=== PATIENT | female | born 1945 | race Caucasian/White ===

== ENCOUNTER 2020-01-02 19:34 | Inpatient (IN) | payer MEDICARE, SELFPAY ==
[2020-01-02] VITALS (21 sets, daily range): BP systolic 151–235; BP diastolic 81–115; PULSE 67–88; RESP 17–18; TEMP 36.6; O2SAT 93–98; BMI 29.0
--- NOTE | 2020-01-02 19:51 | XR_ITS ---
PROCEDURE: XR CHEST 2V CLINICAL HISTORY: altered mental COMPARISON: No exams were available for comparison FINDINGS: The cardiomediastinal silhouette and pulmonary vascularity are within normal limits. The lungs are clear without infiltrates, suspicious nodules, or pleural effusions. There is calcified granuloma in the left apex. No acute bony findings. IMPRESSION: No acute findings. Dictated b Fritz Santos MD 01/03/2020 07:49 Fritz Santos MD in [facility] 01/03/2020 07:49
--- NOTE | 2020-01-02 19:51 | CT_ITS ---
PROCEDURE: CT HEAD/BRAIN WO CON CLINICAL INDICATION: altered mental status Altered mental status, altered level of consciousness, confusion, disorientation COMPARISON: No exams were available for comparison TECHNIQUE: Axial images obtained. All CT scans at the facility use one or more dose reduction, viz: automated exposure control, ma/kV adjustment per patient size (including targeted exams where dose is matched to indication, i.e. head), or iterative reconstruction technique. FINDINGS: No midline shift, mass effect, intracranial hemorrhage, hydrocephalus, or extra-axial fluid collection is evident. There is generalized atrophy with hypoattenuation of the periventricular white matter consistent with microangiopathic changes. The calvarium has an unremarkable appearance. No mastoid effusion. No sinus air-fluid level. Hyperostosis frontalis interna IMPRESSION: No acute intracranial finding Dictated b Fritz Santos MD 01/03/2020 09:13 Fritz Santos MD in [facility] 01/03/2020 09:13
--- NOTE | 2020-01-02 19:51 | ECG_ITS ---
APPROVED REPORT Exam: Resting ECG HR:71 bpm ECG Measurements Heart Rate 71 AXES MI 180 P 46 QRSd 80 QRS -5 QT 436 T 54 QTc 473 <Conclusion> Normal sinus rhythm Minimal voltage criteria for LVH, may be normal variant ST abnormality, possible digitalis effect Abnormal ECG Electronically signed by : Peter Morgan, 01/03/2020 07:16:01
[2020-01-02 20:03] LABS: POC Glucose,Bedside 110 (70-110)
[2020-01-02 20:07] LABS: Basophils % 0.3 % (0.1-2.0); Eosinophils # 0.1 K/mm3 (0.0-0.4); Eosinophils % 1.6 % (0.1-12.0); Hematocrit 36.2 % (37.0-47.0); Hemoglobin 13.4 g/dL (12.2-16.2); Lymphocytes % 38.9 % (10-50); Mean Corpuscular Hemoglobin 33.8 pg (27.0-31.2); Mean Corpuscular Volume 91.4 fl (81-99); Mean Platelet Volume 6.8 fl (7.4-10.4); Monocytes # 0.4 K/mm3 (0.1-1.0); Monocytes % 5.7 % (1.7-9.3); Neutrophils # 4.1 K/mm3 (1.8-7.8); Neutrophils % 53.4 % (37.0-80.0); Platelet Count 325 K/mm3 (142-424); Red Blood Count 3.95 M/mm3 (4.20-5.40); Red Cell Distribution Width 13.2 % (11.5-17.5); White Blood Count 7.7 K/mm3 (4.8-10.8)
[2020-01-02 20:08] LABS: Chloride 95 mmol/L (98-107); Potassium 3.6 mmoL/L (3.5-5.1); Sodium 134 mmol/L (136-145)
[2020-01-02 20:10] LABS: Alanine Aminotransferase 21 U/L (12-78); Aspartate Amino Transferase 33 U/L (14-36); Bilirubin,Unconjugated 0.5 mg/dL (0.0-1.1); Blood Urea Nitrogen 12 mg/dl (7-17); Creatinine Clearance Estimated 64 mL/min (50-200); Estimated Glomerular Filt Rate 61 ml/min (>60); GFR (African American) 74 ML/MIN (>60)
[2020-01-02 20:11] LABS: Albumin Level 4.4 g/dl (3.5-5.0); Alkaline Phosphatase 103 U/L (38-126); Anion Gap 17.6 mEq/L (5-15); Bilirubin,Direct 0.1 mg/dl (0.0-0.4); Bilirubin,Indirect 0.5 mg/dL (0.0-0.9); Bilirubin,Total 0.6 mg/dl (0.2-1.3); Calcium 9.6 mg/dl (8.4-10.2); Carbon Dioxide 25 mmol/L (22.0-30.0); Glucose 110 mg/dl (74-100); Total Protein,Serum 8.4 g/dl (6.3-8.2)
--- NOTE | 2020-01-02 20:19 | HMH.EDGENADL ---
ED Disposition Clinical Impression: Hypertensive encephalopathy Disposition: Admitted As Inpatient Condition on Discharge: Serious - Critical Care Critical Care Time: Yes Attestation: On 01/02/20, the high probability of a clinically significant, sudden or life threatening deterioration of the following system(s) required my full and direct attention, intervention and personal management. The time I documented below is in addition to time spent performing reported procedures but includes the following listed in this critical care notation. Total Critical Care Time: 40 Vital system(s) involved:: Circulatory Failure, Central Nervous System My critical care processes included: Assessment & monitoring of V/S, Initial and Re-exams, Data Review/Interpretation, Coordinating Care, Medication Orders and management, Documentation Medical Decision Making - Medical Records Medical records reviewed: Yes: I reviewed the patient's medical records. - [place] Inquiry Pt receiving controlled substance: No Vital Signs: 01/02/20 19:47 01/02/20 20:23 01/02/20 20:48 Temperature 97.8 F Temperature Source Oral Pulse Rate [Right Brachial] 73 79 67 Respiratory Rate 18 18 18 Blood Pressure [Right Arm] 229/115 H 222/105 H 235/108 H Blood Pressure Mean [Right Arm] 153 144 150 Blood Pressure Source [Right Arm] Automatic Cuff Blood Pressure Position [Right Arm] Sitting 02 Sat by Pulse Oximetry 98 96 93 L Oxygen Delivery Method Room Air Room Air Room Air 01/02/20 21:03 01/02/20 21:23 01/02/20 21:35 Temperature Temperature Source Pulse Rate [Right Brachial] 76 79 81 Respiratory Rate 17 18 18 Blood Pressure [Right Arm] 218/96 H 183/88 H 193/88 H Blood Pressure Mean [Right Arm] 136 119 123 Blood Pressure Source [Right Arm] Automatic Cuff Blood Pressure Position [Right Arm] Sitting 02 Sat by Pulse Oximetry 98 97 94 L Oxygen Delivery Method Room Air Room Air 01/02/20 21:40 01/02/20 21:45 01/02/20 21:50 Temperature Temperature Source Pulse Rate [Right Brachial] 88 84 85 Respiratory Rate 18 18 18 Blood Pressure [Right Arm] 201/101 H 194/108 H 186/96 H Blood Pressure Mean [Right Arm] 134 136 126 Blood Pressure Source [Right Arm] Blood Pressure Position [Right Arm] 02 Sat by Pulse Oximetry 94 L 95 94 L Oxygen Delivery Method Room Air Room Air Room Air 01/02/20 21:55 01/02/20 22:00 01/02/20 22:05 Temperature Temperature Source Pulse Rate [Right Brachial] 80 85 81 Respiratory Rate 18 18 18 Blood Pressure [Right Arm] 183/85 H 176/86 H 155/84 H Blood Pressure Mean [Right Arm] 117 116 107 Blood Pressure Source [Right Arm] Blood Pressure Position [Right Arm] 02 Sat by Pulse Oximetry 95 94 L 94 L Oxygen Delivery Method Room Air Room Air Room Air 01/02/20 22:10 01/02/20 22:15 01/02/20 22:20 Temperature Temperature Source Pulse Rate [Right Brachial] 84 84 81 Respiratory Rate 18 18 18 Blood Pressure [Right Arm] 160/81 H 155/81 H 153/93 H Blood Pressure Mean [Right Arm] 107 105 113 Blood Pressure Source [Right Arm] Blood Pressure Position [Right Arm] 02 Sat by Pulse Oximetry 95 95 95 Oxygen Delivery Method Room Air Room Air Room Air 01/02/20 22:29 01/02/20 22:45 01/02/20 23:00 Temperature Temperature Source Pulse Rate [Right Brachial] 82 84 84 Respiratory Rate 18 18 18 Blood Pressure [Right Arm] 161/87 H 164/87 H 157/87 H Blood Pressure Mean [Right Arm] 111 112 110 Blood Pressure Source [Right Arm] Blood Pressure Position [Right Arm] 02 Sat by Pulse Oximetry 94 L 95 94 L Oxygen Delivery Method Room Air Room Air Room Air 01/02/20 23:15 01/02/20 23:30 01/02/20 23:45 Temperature Temperature Source Pulse Rate [Right Brachial] 87 85 85 Respiratory Rate 18 18 18 Blood Pressure [Right Arm] 163/90 H 169/91 H 151/88 H Blood Pressure Mean [Right Arm] 114 117 109 Blood Pressure Source [Right Arm] Blood Pressure Position [Right Arm] 02 Sat by Pulse Oxi
[2020-01-02 20:31] LABS: Troponin I < 0.01 ng/ml (0.00-0.034)
[2020-01-02 21:38] LABS: Adenovirus,PCR Not Detected (NotDetected); Bordetella Pertussis Not Detected (NotDetected); Chlamydophila Pneumoniae, PCR Not Detected (NotDetected); Coronavirus 19, PCR Not Detected (NotDetected); Coronavirus 229E Not Detected (NotDetected); Coronavirus NL63 Not Detected (NotDetected); Coronavirus OC43 Not Detected (NotDetected); Coronovirus HKU1,PCR Not Detected (NotDetected); Human Metapneumovirus Not Detected (NotDetected); Influenza A, PCR Not Detected (NotDetected); Influenza AH1, 2009 Not Detected (NotDetected); Influenza AH1, PCR Not Detected (NotDetected); Influenza AH3,PCR Not Detected (NotDetected); Influenza B, PCR Not Detected (NotDetected); Mycoplasma Pneumoniae, PCR Not Detected (NotDetected); Parainfluenza 1, PCR Not Detected (NotDetected); Parainfluenza 2, PCR Not Detected (NotDetected); Parainfluenza 3, PCR Not Detected (NotDetected); Parainfluenza 4, PCR Not Detected (NotDetected); Respiratory Syncytial Virus Not Detected (NotDetected); Rhinovirus/Enterovirus Not Detected (NotDetected)
[2020-01-02 21:45] LABS: Thyroid Stimulating Hormone 2.78 uIU/mL (0.465-4.68)
[2020-01-02 21:58] LABS: Microscopic, Urine URINE MICROSCOPIC (MICROSCOPIC)
--- NOTE | 2020-01-02 22:24 | PC.NURSE ---
decreased cardene drip to 2.5 due to hypertension decrease to 150+ systolic.
[2020-01-02 22:27] LABS: Appearance,Urine CLEAR (Clear); Bilirubin,Urine Negative (Negative); Blood, Urine TRACE-I (Negative); Color,Urine YELLOW (Yellow); Glucose,Urine (UA) Negative (Negative); Ketones,Urine Negative (Negative); Leukocyte Esterase,Urine Negative (Negative); Nitrate,Urine Negative (Negative); Protein,Urine Negative (Negative); Urobilinogen,Urine 0.2 EU/dl (0.2)
[2020-01-02 22:39] LABS: Amphetamine/Metha Screen,Urine Negative ng/ml (<1000)
[2020-01-02 22:40] LABS: Barbiturates Screen,Urine Negative ng/ml (<200); Benzodiazepines Screen,Urine Negative ng/ml (<200)
[2020-01-02 22:41] LABS: Cannabinoid Screen,Urine Negative ng/ml (<50); Cocaine Screen,Urine Negative ng/ml (<300)
[2020-01-02 22:42] LABS: Methadone Screen,Urine Negative ng/ml (<300)
[2020-01-02 22:43] LABS: Opiate Screen,Urine Negative ng/ml (<300); Phencyclidine Screen,Urine Negative ng/ml (<25)
[2020-01-02 22:55] LABS: Bacteria,Urine Trace /lpf; Squamous Epithelial Cell,Urine Occasional #/hpf (0-5); WBC,Urine Occasional #/hpf (0-3)
[2020-01-02 23:59] LABS: Troponin I < 0.01 ng/ml (0.00-0.034)
[2020-01-03] VITALS (39 sets, daily range): BP systolic 123–164; BP diastolic 62–98; PULSE 61–98; RESP 15–20; TEMP 36.7–37.1; O2SAT 90–98; BMI 28.6
--- NOTE | 2020-01-03 01:18 | PC.NURSE ---
pt leaving to the floor at this time via stretcher
--- NOTE | 2020-01-03 01:21 | PC.NURSE ---
patient up to floor via stretcher by RN.
--- NOTE | 2020-01-03 02:30 | PC.NURSE ---
Late Entry: @ 0100 - This RN obtained report from Yu Gill RN from the ER. This RN transferred orders and proceeded to ER to collect pt. @ 0105 - pt's daughter Anna at pt's bedside in ER, spoke with daughter and pt. Pt does not have a POA, and states her Sergio Farias or daughter would make health care decisions if pt is unable. Home# [phone]. Pt & daughter states pt is a full code. @ 0118 - transferred pt to the 2nd floor via stretcher, on room air
--- NOTE | 2020-01-03 02:54 | PC.NURSE ---
@ 0245 marizaene stopped d/t BP 123/76, goal setting for Cardene is to titrate to keep SBP < 150.
--- NOTE | 2020-01-03 03:11 | PC.NURSE ---
Pt sleeping quietly in bed with HOB @ 45 degrees. Pt has denied any N/V/D. Pt c/o headache upon arrival to the floor, medicated with Tylenol with good response on pain re-assessment. Pt has ambulated in the room and tolerated well with staff SBA. NSR noted on cardiac monitoring. Lungs CTA. Pt denies any SOA or dyspnea. ABD soft, non-tender with active BS and pt's last BM was 01/02/20. SaO2 has been 91-93% while asleep and >93% while awake. Pt denies any cough. Trace edema noted to Bilat ankles. Scattered bruising noted to BUE r/t prev. IV and venipuncture sites. CAll light wihtin reach, bed alarm in use, will continue to monitor.
--- NOTE | 2020-01-03 04:00 | PC.NURSE ---
Pt's SPB has maintained in goal of SBP < 150. Current BP 143/82. S/W Dr. Chen and instructed to continue on current gtt rate of 2.5mg/hr. No new orders for PO transitioning.
--- NOTE | 2020-01-03 07:17 | HMH.HP ---
*Admission Date: 01/02/20 *Chief complaint: Confusion *History of present illness: 74-year-old female with history of hypertension presented to the emergency department after a week long [place] with elevated blood pressures that on the day of admission had progressed to include confusion with aphasia. Patient reports last Wednesday her blood pressure was greater than 200 systolic. By yesterday afternoon the patient was having trouble finding my words . Family recognize this and brought her to the emergency department. Systolic blood pressure was around 220. Work-up was unrevealing and patient was diagnosed with hypertensive encephalopathy and admitted on a nicardipine drip. Blood pressures have responded well and have gradually improved. Patient this morning the patient reports she feels better. She denies headache. She feels like her speech is more appropriate and back to baseline [facility] History I have reviewed the patient's past medical history: Yes Medical History: Reports:: Hypertension Denies:: Cancer, Diabetes Mellitus Type 1, Diabetes Mellitus Type 2 *Have you ever received a pneumonia vaccine?: No *Have you received a flu vaccine this season?: No Other Medical History: Reports: Thyroid Disease Comment:: Hypothyroidism Other Surgeries: Yes: Dilation and Curettage - *Social History Last grade of school completed: 9th or 10th Smoking Status: Former smoker #Yrs smoked (if former smoker): 3 Smoking End Date: 05/31/1999 Alcohol Intake: former *Occupational Status:: retired Housing: house Household Members: spouse *Travel in the last 8 weeks: None Family Hx:: Heart Attack Review of Systems - Constitutional Denies body ache(s), Denies chills - Eyes Denies blind spots, Denies blurry vision, Denies change in vision - *Cardiovascular Denies chest pain, Denies chest pain at rest, Denies chest pain with activity, Denies excessive sweating, Denies shortness of breath, Denies shortness of breath with activity - *Respiratory Denies change in phlegm color, Denies chest congestion, Denies cough, Denies shortness of breath - *Gastrointestinal Denies abdominal pain, Denies belching - *Musculoskeletal Denies abnormal walking - *Neurologic Reports confusion, Reports unsteadiness, Reports headache(s), Denies abnormal speech, Denies numbness, Denies weakness Meds Home Medications Medication Instructions Recorded Confirmed Type LORazepam [Lorazepam] 1 tab PO DAILY 01/02/20 01/02/20 History Levothyroxine Sodium 88 mcg PO DAILY 01/02/20 01/03/20 History [Levothyroxine 88mcg (0.088mg) Tab] Lisinopril/Hydrochlorothiazide 1 tab PO DAILY 01/02/20 01/03/20 History [Lisinopril-Hctz 10-12.5 mg Tab] atenoloL [Atenolol 50mg Tab] 50 mg PO DAILY 01/02/20 01/03/20 History Allergies Allergy/AdvReac Type Severity Reaction Status Date / Time No Known Allergies Allergy Verified 01/02/20 19:51 Exam Vital signs and Labs for Last 24 Hours: Temp Pulse Resp BP Pulse Ox 98.0 F 67 19 124/67 95 01/03/20 05:15 01/03/20 06:00 01/03/20 06:00 01/03/20 06:00 01/03/20 06:00 Laboratory Results - last 24 hr 01/02/20 19:50: WBC 7.7, RBC 3.95 L, Hgb 13.4, Hct 36.2 L, MCV 91.4, MCH 33.8 H, MCHC 37.0 H, RDW 13.2, Plt Count 325, MPV 6.8 L, Neut % (Auto) 53.4, Lymph % (Auto) 38.9, [place] % (Auto) 5.7, Eos % (Auto) 1.6, Baso % (Auto) 0.3, Neut # (Auto) 4.1, Lymph # (Auto) 3.0, [place] # (Auto) 0.4, Eos # (Auto) 0.1, Baso # (Auto) 0.0 01/02/20 19:50: Sodium 134 L, Potassium 3.6, Chloride 95 L, Carbon Dioxide 25, Anion Gap 17.6 H, BUN 12, Creatinine 0.90, Estimated Creat Clear 64, Estimated GFR 61, Est GFR ( Amer) 74, Glucose 110 H, Calcium 9.6, Total Bilirubin 0.6, Direct Bilirubin 0.1, Conjugated Bilirubin 0.0, Indirect Bilirubin 0.5, Unconjugated Bilirubin 0.5, AST 33, ALT 21, Alkaline Phosphatase 103, Troponin I < 0.01, Total Protein 8.4 H, Albumin 4.4 01/02/20 19:50: TSH 2.78 01/02/20 19:56: POC Glucose 110 01/02/20 21:36: Chl
--- NOTE | 2020-01-03 07:23 | CA_ITS ---
APPROVED REPORT Supervising Chef: Kasandra Lowe RVT Study Quality: Good Indications: hypertensive emergency Risk Factors Hypertension Renal Artery Doppler Origin (R) 103.2/ cm/sec Proximal (R) 153.3/ cm/sec Mid (R) 94.5/ cm/sec Distal (R) 64.5/ cm/sec Renal Aorta Ratio (R) 2.16 Segmental A. (R) 36.9/10.3 cm/sec RI: 0.72 Segmental A. Sup (R) 16.7/10.2 cm/sec Segmental A. Mid (R) 36.9/10.3 cm/sec Segmental A. Inf (R) 18.9/6.7 cm/sec Origin (L) 89.0/ cm/sec Proximal (L) 73.3/ cm/sec Mid (L) 86.3/ cm/sec Distal (L) 75.7/ cm/sec Renal Aorta Ratio (L) 1.26 Segmental A. (L) 46.0/10.6 cm/sec RI: 0.76 Segmental A. Sup (L) 38.9/7.1 cm/sec Segmental A. Mid (L) 39.6/7.8 cm/sec Segmental A. Inf (L) 46.0/10.6 cm/sec Renal Measurements Kidney Size (R) 10.1x6.7 cm Cortical Thickness (R) 1.3 cm Kidney Size (L) 10.9x6.1 cm Cortical Thickness (L) 1.4 cm Findings Study suggests no evidence of stenosis of the bilateral renal arteries. Conclusion Study suggests no evidence of stenosis of the bilateral renal arteries. Electronically signed by : Fritz Santos MD 01/03/2020 16:20:16
--- NOTE | 2020-01-03 07:33 | P.CONPHA_ITS ---
[facility] Pharmacy VTE Monitoring - Patient Demographics Admission date: 01/02/20 Report Date: 01/03/20 Time: 07:33 Allergies/Adverse Reactions: Patient Allergies No Known Allergies Allergy (Verified 01/02/20 19:51) Height: 1.6 m Weight: 73.346 kg Patient Problems: Current Active Problems Hypertensive encephalopathy (Acute) - VTE Risk Labs: VTE Related Lab Results Hgb 13.4 g/dL (12.2-16.2) 01/02/20 19:50 Hct 36.2 % (37.0-47.0) L 01/02/20 19:50 Plt Count 325 K/mm3 (142-424) 01/02/20 19:50 BUN 12 mg/dl (7-17) 01/02/20 19:50 Creatinine 0.90 mg/dl (0.52-1.04) 01/02/20 19:50 Estimated Creat Clear 64 mL/min (50-200) 01/02/20 19:50 VTE Score: 3 VTE Risk Level: Low Risk - Prophylaxis VTE Prophylaxis Ordered?: Yes Types of VTE Prophylaxis: TEDS Knee High Location of Applied Device: Bilateral Lower Extremeties - VTE Diagnosis Confirmed Treatment or plan recommended: Continue Current Treatment
--- NOTE | 2020-01-03 07:51 | PC.NURSE ---
per md tamayo, give amlodipine and stop drip.
--- NOTE | 2020-01-03 11:04 | HMH.PHAINT ---
MEDICATION RECONCILIATION COMPLETED ON PATIENT USING EXTERNAL FILL HISTORY FROM PHARMACY, LIST FROM MD OFFICE, AND PATIENT INTERVIEW. -MAKAYLA JAMES, MATIASD
--- NOTE | 2020-01-03 19:00 | PC.NURSE ---
pt has had periods of confusion today. is aware, but apparently pt baseline per electrician's helper. have kept bed alarm on while in the bed and the pull alarm on this evening while sitting in the chair. at one point pt granddaughter had had some concerns of pt slurring some words, myself and Em Lacey RN went in the room, pt was not noted to be slurring words, we had her repeat sentences and carry conversations with us, bilat regional sales associate were equal, no facial drooping, when we asked her to stick her tongue out at us she laughed and said no and layed back down in the bed. was at bedside and laughed with her. this was one of her confused episodes today. pt recalls everything this after noon, including some bp's t/o day, that she had to stay another night, and conversations with the family, and granddaughter from earlier in the day. pt bp has maintained under 170 sbp thus far. other vss. will cont. to monitor.
--- NOTE | 2020-01-03 19:00 | PC.NURSE ---
pt has had periods of confusion today. is aware, but apparently pt baseline per maintenance technician 2nd shift. have kept bed alarm on while in the bed and the pull alarm on this evening while sitting in the chair. pt recalls everything this after noon, including some bp's t/o day and [facility] pt bp has maintained under 170 sbp thus far. other vss. will cont. to monitor.
--- NOTE | 2020-01-03 19:33 | PC.NURSE ---
pt has had periods of confusion today. is aware, but apparently pt baseline per operation shift supervisor. have kept bed alarm on while in the bed and the pull alarm on this evening while sitting in the chair. pt recalls everything this after noon, including some bp's t/o day and [facility] pt bp has maintained under 170 sbp thus far. other vss. will cont. to monitor.
--- NOTE | 2020-01-03 23:10 | PC.NURSE ---
patient remains impulsive and currently is disoriented to place and situation.
[2020-01-04] VITALS (7 sets, daily range): BP systolic 124–155; BP diastolic 58–84; PULSE 55–80; RESP 16–19; TEMP 36.8–37.1; O2SAT 94–97; BMI 26.9
--- NOTE | 2020-01-04 02:24 | PC.NURSE ---
0030 nipride drip titrated off at this time
--- NOTE | 2020-01-04 02:53 | PC.NURSE ---
patient pulled telemetry leads off while sleeping, when rn attempted to put back on patient became highly aggitated and refused. cardiac rhythm can still be observed but missing leads la and ll.
--- NOTE | 2020-01-04 03:48 | PC.NURSE ---
patient remains disoriented to place and situation at this time, rn attempts to reorient patient and she states oh no i'm not . patient continues to refuse having missing telemetry leads placed back on. quality assurance monitor does show sr with rate of 65
--- NOTE | 2020-01-04 07:40 | CT_ITS ---
PROCEDURE: CT HEAD/BRAIN W CON CLINICAL INDICATION: confusion, hypertension, r/o CVA/RIND COMPARISON: CT CT HEAD/BRAIN WO CON from 01/02/2020 TECHNIQUE: IV Contrast: 100ML OPITRAY 320 Axial images obtained. All CT scans at the facility use one or more dose reduction, viz: automated exposure control, ma/kV adjustment per patient size (including targeted exams where dose is matched to indication, i.e. head), or iterative reconstruction technique. FINDINGS: No midline shift, mass effect, hydrocephalus or enhancing lesion evident. Small intracranial bleeds may not be visualized with only a post enhanced exam. No large aneurysms or major intracranial occlusive process apparent mild mucosal thickening involves the ethmoid sinuses IMPRESSION: No acute finding. No enhancing lesions. No areas of luxury perfusion that would indicate a subacute infarction Dictated b Fritz Santos MD 01/04/2020 09:17 Fritz Santos MD in [facility] 01/04/2020 09:17
--- NOTE | 2020-01-04 07:41 | HMH.ACPN2 ---
Internal Medicine - PN: Subj *Date: 01/04/20 *Time: 07:41 Interval history: Patient awakens this morning easily. She reports no pain. She initially states that she is at home and despite being corrected on her location frequently refers to herself as being at home with family. She lives with her . Patient had done well yesterday until the afternoon when nursing staff reported that she had become disoriented again with systolic blood pressure reaching 170. Patient was given a single dose of IV hydralazine, 10 mg with improvement in blood pressure but no improvement in confusion. Since that time the patient has remained disoriented regarding her location. This morning she once again is accurate on month year, POTUS, but is incorrect on the day and the date (similar to yesterday) Exam Vital signs and Labs for Last 24 Hours: Temp Pulse Resp BP Pulse Ox 98.8 F 63 16 153/84 H 96 01/04/20 04:00 01/04/20 06:00 01/04/20 06:00 01/04/20 06:00 01/04/20 06:00 I & O for Last 24 hours: Intake & Output 01/01/20 01/02/20 01/03/20 01/04/20 11:59 11:59 11:59 11:59 Intake Total 290 / 290 0 / 0 Output Total 1050 / 1050 Balance -760 / -760 0 / 0 Weight 161 lb 11.2 oz 152 lb 1.903 oz Narrative: Patient looks well. Speech is fluent. Patient is calm and exhibits no aphasia. She has active range of motion in the arms and legs with motor and sensory functions being symmetric and intact. Lungs are clear. Heart has a regular rate and rhythm. Assessment and Plan (1) Hypertensive encephalopathy Current visit: Yes Status: Acute Category: Medical Code(s): I67.4 - Hypertensive encephalopathy (2) Change in mental status Current visit: Yes Status: Acute Category: Medical Code(s): R41.82 - Altered mental status, unspecified - Assessment and plan all Dx Assessment and Plan for all problems:: 1. Repeat CT scan of the brain today with IV contrast. 2. I am beginning to suspect patient's disorientation may actually be her baseline and being in the hospital is what actually has her disoriented. 3. Continue current antihypertensive regimen as systolics have been around 150 and will not push lower at this time
--- NOTE | 2020-01-04 08:25 | PC.NURSE ---
late entry: called registration at 0729 to move pt from stepdown to acute.
--- NOTE | 2020-01-04 08:34 | PC.NURSE ---
patient iv went bad in ct. new iv placed 20 in l forearm
--- NOTE | 2020-01-04 12:47 | PC.NURSE ---
teaching done with patient and her about medication changes. what to stop and start and what she has already taken
--- NOTE | 2020-01-04 16:17 | HMH.DCSUM ---
General - General Admission date:: 01/03/20 Discharge date: 01/04/20 HPI HPI: 74-year-old female with history of hypertension presented to the emergency department after a week long [place] with elevated blood pressures that on the day of admission had progressed to include confusion with aphasia. Patient reports last Wednesday her blood pressure was greater than 200 systolic. By yesterday afternoon the patient was having trouble finding my words . Family recognize this and brought her to the emergency department. Systolic blood pressure was around 220. Work-up was unrevealing and patient was diagnosed with hypertensive encephalopathy and admitted on a nicardipine drip. Blood pressures have responded well and have gradually improved. Patient this morning the patient reports she feels better. She denies headache. She feels like her speech is more appropriate and back to baseline Hospital Course Hospital Course: Patient was admitted and placed on a nicardipine drip. By the following morning blood pressures had reached the 130 systolic. Patient had return of normal mentation and normal speech and was oriented to person, place, month and year but not date or day. She was transitioned to oral medications with increases in her lisinopril, addition of carvedilol, amlodipine to her regimen and hydrochlorothiazide 25 mg. Patient was observed. Blood pressure stayed between 130 and 170 systolic. On the afternoon of January 02 patient became disoriented and was unable to recall location. This persisted during the remainder of hospitalization despite improvement in blood pressure. When her blood pressure did reach 170 that is when the symptoms were triggered however improvement in blood pressure did not resolve her disorientation. On the morning of January 03 the patient continues to state that she was at home despite continually being reminded she was in a hospital. A repeat CT scan of the head with IV contrast was performed and did not reveal any acute or subacute infarcts. I spoke with the patient's family and they did not report any altered memory or confusion outside of this most recent episode that led to hospitalization. His repeat CT scan was normal and the patient had no neurologic deficit other than trouble remembering her location she was discharged home with medication changes and will follow-up in the office in 1 week. Patient was asked to check her blood pressure twice daily and bring a recording to the office Objective Vital signs: Temp Pulse Resp BP Pulse Ox 98.4 F 69 19 124/58 L 96 01/04/20 11:29 01/04/20 11:29 01/04/20 11:29 01/04/20 11:29 01/04/20 11:29 DS: Diagnosis - Discharge Diagnosis (1) Hypertensive encephalopathy Status: Acute (2) Change in mental status Status: Acute Discharge Plan - Patient Discharge Instructions ACTIVITY: Continue current activity DIET: continue same diet Patient Instructions: Recommendations to Help Prevent High Blood Pressure, Encephalopathy, Amlodipine, Carvedilol - Follow up Plan Follow up with: Eduar Marroquin MD [Primary Care Provider] - 01/09/20 9:30 am Disposition: Home, Self-Fpc Medications: Home Medications Medication Instructions Recorded Confirmed Type LORazepam [Lorazepam] 1 mg PO BIDP PRN 01/02/20 01/03/20 History Levothyroxine Sodium 88 mcg PO DAILY 01/02/20 01/03/20 History [Levothyroxine 88mcg (0.088mg) Tab] Amlodipine Besylate [Norvasc 10mg 10 mg PO DAILY #30 tab 01/04/20 Rx tablet] carvediloL [Coreg 6.25mg 6.25 mg PO BID #60 tab 01/04/20 Rx Tablet] hydroCHLOROthiazide [HCTZ 25mg 25 mg PO DAILY #30 tab 01/04/20 Rx tab] lisinopriL [Zestril 20mg tab] 20 mg PO DAILY #30 tab 01/04/20 Rx Prescriptions/Medication Reconciliation: New carvediloL [Coreg 6.25mg Tablet] 6.25 mg PO BID #60 tab hydroCHLOROthiazide [HCTZ 25mg tab] 25 mg PO DAILY #30 tab Amlodipine Besylate
== END 2020-01-04 11:45 | disposition home or self-care (01) | DRG 79 ==
LOC: ER 21:34 → 2ND 01-03 02:41
PROVIDERS: Emergency Medicine; Admitting Provider Family Medicine; Emergency Provider Emergency Medicine; PCP Family Medicine; Visit Provider Family Medicine
DX: I67.4 Hypertensive encephalopathy (principal); E03.9 Hypothyroidism, unspecified; Z87.891 Personal history of nicotine dependence
CPT/HCPCS: 36415; 70450; 70460; 71046; 80048; 80076; 80305; 81001; 82962; 84443; 84484; 85025; 87581; 87633; 87798; 93005; 93976; 96365; 96375; 99282; 99285; J2405; Q9967

== ENCOUNTER 2020-01-04 14:54 | Emergency (ER) | payer MEDICARE, SELFPAY ==
[2020-01-04 14:55] VITALS: BP 110/57; PULSE 72; RESP 16; TEMP 36.5; O2SAT 98; BMI 26.6
--- NOTE | 2020-01-04 15:09 | ECG_ITS ---
APPROVED REPORT Exam: Resting ECG HR:74 bpm ECG Measurements Heart Rate 74 AXES PA 168 P 91 QRSd 78 QRS -22 QT 412 T 42 QTc 457 <Conclusion> Normal sinus rhythm Voltage criteria for left ventricular hypertrophy Abnormal ECG Electronically signed by : Eduar Hilsl, 01/06/2020 08:28:23
--- NOTE | 2020-01-04 15:29 | XR_ITS ---
PROCEDURE: XR CHEST PORTABLE CLINICAL HISTORY: syncope Shortness of breath COMPARISON: CR XR CHEST 2V from 01/02/2020 FINDINGS: Borderline cardiomegaly without failure Calcified granuloma left upper lobe. The remaining lungs are clear No acute bony abnormalities. IMPRESSION: No change with no acute finding Dictated b Fritz Santos MD 01/04/2020 16:12 Fritz Santos MD in [facility] 01/04/2020 16:12
[2020-01-04 15:30] VITALS: BP 148/82; PULSE 68
[2020-01-04 16:04] LABS: Microscopic, Urine URINE MICROSCOPIC (MICROSCOPIC)
[2020-01-04 16:07] LABS: Appearance,Urine CLEAR (Clear); Basophils % 0.1 % (0.1-2.0); Bilirubin,Urine Negative (Negative); Blood, Urine TRACE-I (Negative); Color,Urine YELLOW (Yellow); Eosinophils % 0.3 % (0.1-12.0); Glucose,Urine (UA) Negative (Negative); Hematocrit 39.4 % (37.0-47.0); Hemoglobin 13.4 g/dL (12.2-16.2); Ketones,Urine Negative (Negative); Leukocyte Esterase,Urine Negative (Negative); Lymphocytes # 1.4 K/mm3 (0.7-4.5); Lymphocytes % 10.7 % (10-50); Mean Corpuscular HGB Conc 34.1 g/dL (31.8-35.4); Mean Corpuscular Hemoglobin 32.2 pg (27.0-31.2); Mean Corpuscular Volume 94.5 fl (81-99); Mean Platelet Volume 6.4 fl (7.4-10.4); Monocytes # 0.7 K/mm3 (0.1-1.0); Monocytes % 5.2 % (1.7-9.3); Neutrophils # 10.8 K/mm3 (1.8-7.8); Neutrophils % 83.7 % (37.0-80.0); Nitrate,Urine Negative (Negative); PH,Urine 5.5 (5.0-8.5); Platelet Count 341 K/mm3 (142-424); Protein,Urine TRACE (Negative); Red Blood Count 4.17 M/mm3 (4.20-5.40); Red Cell Distribution Width 12.6 % (11.5-17.5); Specific Gravity, Urine <= 1.005 (1.005-1.030); Urobilinogen,Urine 0.2 EU/dl (0.2); White Blood Count 12.9 K/mm3 (4.8-10.8)
[2020-01-04 16:14] LABS: Squamous Epithelial Cell,Urine Occasional #/hpf (0-5)
[2020-01-04 16:16] LABS: Alanine Aminotransferase 26 U/L (12-78); Albumin Level 4.7 g/dl (3.5-5.0); Alkaline Phosphatase 123 U/L (38-126); Anion Gap 19.7 mEq/L (5-15); Aspartate Amino Transferase 36 U/L (14-36); Bilirubin,Total 1.2 mg/dl (0.2-1.3); Blood Urea Nitrogen 19 mg/dl (7-17); Carbon Dioxide 25 mmol/L (22.0-30.0); Chloride 88 mmol/L (98-107); Creatinine Clearance Estimated 45 mL/min (50-200); Estimated Glomerular Filt Rate 44 ml/min (>60); GFR (African American) 53 ML/MIN (>60); Globulin 4.5 g/dL (1.3-3.2); Glucose 109 mg/dl (74-100); Potassium 3.7 mmoL/L (3.5-5.1); Sodium 129 mmol/L (136-145); Total Protein,Serum 9.2 g/dl (6.3-8.2)
[2020-01-04 16:29] LABS: Troponin I < 0.01 ng/ml (0.00-0.034)
[2020-01-04 16:30] VITALS: BP 128/73; PULSE 69
--- NOTE | 2020-01-04 16:52 | PC.NURSE ---
dr tamayo at bedside
[2020-01-04 17:00] VITALS: BP 128/81; PULSE 68; RESP 16; TEMP 36.6; O2SAT 98
--- NOTE | 2020-01-04 17:00 | PC.NURSE ---
orthostatic pressures 1650 158/84 pulse 75 1651 138/83 pulse 81 1652 117/66 pulse 87
--- NOTE | 2020-01-04 17:37 | HMH.EDDIZZ ---
ED Disposition Clinical Impression: Syncope due to orthostatic hypotension Disposition: Home, Self-Care Condition on Discharge: Fair Instructions: DI for Syncope in Adults (Fainting), DI for Syncope in Children (Fainting) Referrals: Eduar Marroquin MD [Primary Care Provider] - Time of Disposition: 17:47 - Critical Care Critical Care Time: No Attestation: On 01/04/20, the high probability of a clinically significant, sudden or life threatening deterioration of the following system(s) required my full and direct attention, intervention and personal management. The time I documented below is in addition to time spent performing reported procedures but includes the following listed in this critical care notation. Medical Decision Making - Medical Records Medical records reviewed: Yes: I reviewed the patient's medical records. MR Comment: Patient is here brought in by family with a complaint that she is weak and had passed out at home. Had been admitted to the hospital recently with hypertensive symptoms and was started on several medications, discharged home this morning, patient is on 4 different antihypertensive medications. She was discharged home this morning by dr Marroquin after improvement of her symptoms. Have done her labs and note normal CBC CMP troponin chest x-ray urine analysis vital signs are stable with a blood pressure 110/57 orthostatic hypotension was noticed however and we are giving her IV fluids Dr. Marroquin has seen the patient and assured them of normal findings - [place] Inquiry Pt receiving controlled substance: No Vital Signs: 01/04/20 14:55 Temperature 97.7 F Temperature Source Oral Pulse Rate [Left Radial] 72 Respiratory Rate 16 Blood Pressure [Right Arm] 110/57 L Blood Pressure Mean [Right Arm] 74 Blood Pressure Position [Right Arm] Sitting 02 Sat by Pulse Oximetry 98 Oxygen Delivery Method Room Air - Lab Data Lab results reviewed: Yes: I reviewed the patient's lab results. Lab Results 01/04/20 15:54: WBC 12.9 H D, RBC 4.17 L, Hgb 13.4, Hct 39.4, MCV 94.5, MCH 32.2 H, MCHC 34.1, RDW 12.6, Plt Count 341, MPV 6.4 L, Neut % (Auto) 83.7 H, Lymph % (Auto) 10.7, [place] % (Auto) 5.2, Eos % (Auto) 0.3, Baso % (Auto) 0.1, Neut # (Auto) 10.8 H, Lymph # (Auto) 1.4, [place] # (Auto) 0.7, Eos # (Auto) 0.0, Baso # (Auto) 0.0 01/04/20 15:54: Sodium 129 L, Potassium 3.7, Chloride 88 L, Carbon Dioxide 25, Anion Gap 19.7 H, BUN 19 H D, Creatinine 1.20 H D, Estimated Creat Clear 45, Estimated GFR 44 L, Est GFR ( Amer) 53 L D, Glucose 109 H, Calcium 10.0, Total Bilirubin 1.2, AST 36, ALT 26, Alkaline Phosphatase 123, Troponin I < 0.01, Total Protein 9.2 H, Albumin 4.7, Globulin 4.5 H, Albumin/Globulin Ratio 1.0 L 01/04/20 15:54: Urine Color Yellow, Urine Appearance Clear, Urine pH 5.5, Ur Specific [place] <= 1.005, Urine Protein Trace, Urine Glucose (UA) Negative, Urine Ketones Negative, Urine Blood Trace-i, Urine Nitrate Negative, Urine Bilirubin Negative, Urine Urobilinogen 0.2, Ur Leukocyte Esterase Negative, Urine RBC 3-5, Urine WBC 3-5, Ur Squamous Epith Cells Occasional Result diagrams: 01/04/20 15:54 01/04/20 15:54 Orders (Tests/Meds): ED MEDICATIONS Generic Name Dose Route Start Last Admin Trade Name Freq PRN Reason Stop Dose Admin Sodium Chloride 1,000 mls @ 999 mls/hr 01/04/20 17:00 01/04/20 17:12 Sod Chlor 0.9% 1000ml Bag IV 01/04/20 18:00 999 mls/hr .Q1H1M YOGESH Administration ORDERS Category Date Time Status Troponin I Q3H Lab 01/04/20 18:30 Ordered Troponin I Q3H Lab 01/04/20 21:30 Ordered Dizzy HPI - General Chief Complaint: Syncope Stated Complaint: passed out and confused Time Seen by Provider: 01/04/20 17:00 Mode of Arrival: Wheelchair Source of Information: Patient, Spouse, Relative Limitations: No Limitations Description of Symptoms (Recalled from ER Triage Doc. by RN): to ed per pvt car report per family, pt was d/cherri from inpatient this am. pt had a
[2020-01-04 18:16] VITALS: BP 135/65; PULSE 65; RESP 16; TEMP 36.6; O2SAT 98
[2020-01-06 02:56] LABS: POC Glucose,Bedside 146 (70-110)
== END 2020-01-04 18:21 | disposition home or self-care (01) ==
PROVIDERS: Emergency Provider Emergency Medicine; PCP Family Medicine
DX: R55 Syncope and collapse (principal); I95.1 Orthostatic hypotension; I10 Essential (primary) hypertension; E03.9 Hypothyroidism, unspecified; Z79.899 Other long term (current) drug therapy
CPT/HCPCS: 71045; 80053; 81001; 82962; 84484; 85025; 93005; 96365; 99283; 99284

== ENCOUNTER 2023-07-19 17:28 | Observation (INO) | payer MEDICARE, SELFPAY ==
[2023-07-19] VITALS (9 sets, daily range): BP systolic 127–195; BP diastolic 71–106; PULSE 60–84; RESP 16–20; TEMP 36.6; O2SAT 95–98; BMI 27.4
[2023-07-19 17:49] LABS: Basophils % 0.2 % (0.1-2.0); Eosinophils # 0.1 K/mm3 (0.0-0.4); Eosinophils % 0.6 % (0.1-12.0); Hematocrit 33.3 % (37.0-47.0); Hemoglobin 12.2 g/dL (12.2-16.2); Lymphocytes % 27.2 % (10-50); Mean Corpuscular HGB Conc 36.6 g/dL (31.8-35.4); Mean Platelet Volume 7.3 fl (7.4-10.4); Monocytes # 0.5 K/mm3 (0.1-1.0); Neutrophils # 4.7 K/mm3 (1.8-7.8); Platelet Count 272 K/mm3 (142-424); Red Blood Count 3.59 M/mm3 (4.20-5.40); White Blood Count 7.2 K/mm3 (4.8-10.8)
[2023-07-19 18:00] LABS: Alanine Aminotransferase 22 U/L (12-78); Albumin Level 4.1 g/dl (3.5-5.0); Albumin/Globulin Ratio 1.3 (1.1-1.8); Alkaline Phosphatase 86 U/L (38-126); Anion Gap 12.1 mEq/L (5-15); Aspartate Amino Transferase 30 U/L (14-36); Bilirubin,Total 0.7 mg/dl (0.2-1.3); Blood Urea Nitrogen 12 mg/dl (7-17); Calcium 8.8 mg/dl (8.4-10.2); Carbon Dioxide 26 mmol/L (22.0-30.0); Chloride 89 mmol/L (98-107); Creatinine Clearance Estimated 49 mL/min (50-200); Estimated Glomerular Filt Rate 53 ml/min (>60); GFR (African American) 65 ML/MIN (>60); Globulin 3.2 g/dL (1.3-3.2); Glucose 122 mg/dl (74-100); Potassium 3.1 mmoL/L (3.5-5.1); Sodium 124 mmol/L (136-145); Total Protein,Serum 7.3 g/dl (6.3-8.2)
--- NOTE | 2023-07-19 18:05 | ED_ITS ---
The above medical decision making portion was authored by RACHEL Polanco. I was consulted by the ANGE and we discussed the complexity of the problems being addressed. I approved the treatment and management plan for this patient's care in the emergency department, thus performing a substantive portion of the medical decision making. Lety Del Cid MD Discharge Plan Disposition Chief Complaint: Syncope Prescriptions Prescriptions: No Action levothyroxine 88 MCG tablet 88 mcg PO DAILY lorazepam 1 mg tablet 1 mg PO BIDP PRN (Reason: Anxiety) Patient Comments: TK 1 T PO BID NEEDED FOR ANXIETY carvedilol 6.25 MG tablet 6.25 mg PO BID Qty: 60 0RF lisinopril 20 MG tablet 20 mg PO DAILY Qty: 30 0RF amlodipine 10 MG tablet 10 mg PO DAILY Qty: 30 0RF hydrochlorothiazide 25 MG tablet 25 mg PO DAILY Qty: 30 0RF Referrals Follow up/Referrals: Nicolas Banegas MD [Primary Care Provider] - See instructions Instructions Patient Instructions: DI for Syncope in Adults (Fainting), DI for Syncope in Children (Fainting) Discharge ED Provider: Lety Mendoza General Adult HPI General Chief complaint: Syncope Stated complaint: AO fall 07/18, head pain, upset stomach Time Seen by Provider: 07/19/23 18:04 Mode of Arrival: Ambulatory Source of Information: Patient Limitations: No Limitations Description of Symptoms (Recalled from ER Triage Doc. by RN): Patient states that while in her kitchen yesterday she blacked out and fell hitting her head. States she does not remember falling and does not know how long she was down. States she has been a little nauseous, doesn't feel right and her head is hurting. Related Data Home Medications Medication Instructions Recorded Confirmed levothyroxine 88 mcg tablet 88 mcg PO DAILY thyroid 01/02/20 01/03/20 lorazepam 1 mg tablet 1 mg PO BIDP PRN Anxiety 01/02/20 01/03/20 Previous Rx's Medication Instructions Recorded amlodipine 10 mg tablet 10 mg PO DAILY #30 tabs 01/04/20 carvedilol 6.25 mg tablet 6.25 mg PO BID #60 tabs 01/04/20 hydrochlorothiazide 25 mg tablet 25 mg PO DAILY #30 tabs 01/04/20 lisinopril 20 mg tablet 20 mg PO DAILY #30 tabs 01/04/20 Allergies Allergy/AdvReac Type Severity Reaction Status Date / Time No Known Allergies Allergy Verified 01/02/20 19:51 [facility] Disclaimer: The information contained in this section may have been updated after the patient was seen, as this information can be updated by other users. Social History Smoking Status: Never smoker alcohol intake: never current occupational status: other Travel in the last 8 weeks: None household members: other housing: other current occupation: retired caffeine: Yes ROS Obtained: Yes Systems reviewed as appropriate & no additional complaints except as documented Physical Exam General General appearance: alert and in no apparent distress Head Head exam: atraumatic and normal inspection Eye Eye exam: Present normal appearance, PERRL and EOMI ENT ENT exam: Present normal exam, normal oropharynx and mucous membranes moist Neck Neck exam: Present normal inspection, full ROM and trachea midline; Absent lymphadenopathy Chest Chest inspection: Present normal inspection and symmetric chest wall rise Respiratory Respiratory exam: Present normal lung sounds bilaterally; Absent accessory muscle use Cardiovascular Cardiovascular exam: Present regular rate, normal rhythm, normal heart sounds, +S1 and +S2 Abdominal Exam Abdominal exam: Present soft and normal bowel sounds; Absent tenderness, guarding or rebound Extremities Exam Extremities exam: Present normal inspection and full ROM Neurological Exam Neurological exam: Present alert, oriented X3 and CN II-XII intact Psychiatric Psychiatric exam: Present normal affect and normal mood Skin Skin exam: Present warm, dry and normal color Lymphatic Lymphatic Findings: no adenopathy Medical Decision Making Medical Records Medical records reviewed: Yes I reviewed the patient's medical records. [place] Inquiry Pt receiving controlled substance: No Vital Signs: 07/19/23 17:29 07/19/23 18:00 Temperature 97.9 F Temperature Source Oral Pulse Rate 67 Pulse Rate [Radial] 84 Respiratory Rate 16 Blood Pressure 150/87 H Blood Pressure [Right Arm] 169/90 H Blood Pressure Mean [Right Arm] 116 Blood Pressure Source [Right Arm] Automatic Cuff Blood Pressure Position [Right Arm] Sitting 02 Sat by Pulse Oximetry 95 95 Oxygen Delivery Method Room Air Room Air Lab Data Lab results reviewed: Yes I reviewed the patient's lab results. Lab Results 07/19/23 17:39: WBC 7.2, RBC 3.59 L, Hgb 12.2, Hct 33.3 L, MCV 93.0, MCH 34.0 H, MCHC 36.6 H, RDW 13.0, Plt Count 272, MPV 7.3 L, Neut % (Auto) 65.0, Lymph % (Auto) 27.2, [place] % (Auto) 7.0, Eos % (Auto) 0.6, Baso % (Auto) 0.2, Neut # (Auto) 4.7, Lymph # (Auto) 2.0, [place] # (Auto) 0.5, Eos # (Auto) 0.1, Baso # (Auto) 0.0, PT 10.7, INR 0.99, Sodium 124 L, Potassium 3.1 L, Chloride 89 L, Carbon Dioxide 26, Anion Gap 12.1, BUN 12, Creatinine 1.00, Estimated Creat Clear 49, Estimated GFR 53 L, Est GFR ( Amer) 65, Glucose 122 H, Calcium 8.8, Magnesium 1.6, Total Bilirubin 0.7, AST 30, ALT 22, Alkaline Phosphatase 86, Troponin I < 0.01, Total Protein 7.3, Albumin 4.1, Globulin 3.2, Albumin/Globulin Ratio 1.3, TSH 1.49 07/19/23 17:39 07/19/23 17:39 Orders (Tests/Meds): ED MEDICATIONS Generic Name Dose Route Start Last Admin Trade Name Freq PRN Reason Stop Dose Admin Hydralazine HCl 10 mg 07/19/23 20:54 Hydralazine 20mg/Ml Vial IV 07/19/23 20:55 ONCE ONE Sodium Chloride 10 ml 07/19/23 17:39 Sodium Chloride 0.9% 10ml Flush Syringe IV 08/18/23 17:38 NEEDED PRN Maintain IV Site Discontinued Medications Generic Name Dose Route Start Last Admin Trade Name Freq PRN Reason Stop Dose Admin Acetaminophen 1,000 mg 07/19/23 18:33 07/19/23 18:45 Acetaminophen 1,000mg/100ml Vial IV 07/19/23 18:34 1,000 mg ONCE ONE Administration Ketorolac Tromethamine 15 mg 07/19/23 18:33 07/19/23 18:46 Ketorolac 30mg/Ml Vial IM 07/19/23 18:34 Not Given ONCE ONE Ketorolac Tromethamine 15 mg 07/19/23 18:45 07/19/23 19:47 Ketorolac 30mg/Ml Vial IV 07/19/23 18:46 Not Given ONCE ONE ORDERS Category Date Time Status CT cervical spine wo con Stat Cat Scan 07/19/23 18:[address] head/brain wo con Stat Cat Scan 07/19/23 18:35 Completed Complete Blood Count Auto Diff Stat Lab 07/19/23 17:39 Completed Comprehensive Metabolic Panel Stat Lab 07/19/23 17:39 Completed INR [Prothrombin Time INR] Stat Lab 07/19/23 17:39 Completed Magnesium Stat Lab 07/19/23 17:39 Completed TSH [Thyroid Stimulating Hormone] Stat Lab 07/19/23 17:39 Completed Trop I [Troponin I] Stat Lab 07/19/23 17:39 Completed Troponin I Q3H Lab 07/19/23 21:45 Ordered Troponin I Q3H Lab 07/20/23 00:45 Ordered ECG initial [place] Stat Y 07/19/23 18:53 Completed HEART Score History (anamnesis): Moderately suspicious ECG: Normal Age: >65 years Risk factors: 3 or more risk factors Troponin: </= normal limit HEART Score: 5 Medical Decision Narrative: In summary patient is a 78-year-old female who presents to the emergency department for evaluation of syncope. Patient is hypertensive with a systolic blood pressure of 169/90 on arrival but otherwise with stable vital signs and afebrile satting at 95% on room air. Patient gives a history of a sudden syncopal event that occurred yesterday. Patient was sitting in a chair in her living room next to her and she got up to go to the kitchen she walked approximately 10 feet and had a sudden syncopal episode. She does not know how long she was out but she believes it was briefly. She did not seek care at that time and had no other further events of the the remainder of the day. Patient agreed to come to the ER today because she was having problems with her head hurting. She denied double vision change in sense of smell chest pain shortness of breath fever chills hemoptysis hematochezia melena nausea vomit diarrhea. Patient does report that my head feels funny . Patient has been having fairly labile blood pressures while she is been in the ER with a systolic blood pressure at the time my exam 176/110. Physical exam did not reveal any focal neurologic deficits and revealed tenderness at the vertex of the occiput but otherwise her exam was within normal limits. Initial workup was done which includes hematologic labs twelve-lead EKG CT scan of the head and C-spine. Differential diagnosis includes stroke, cardiac arrhythmia, vasovagal syncope etc. . Initial interventions include IV push dose of a Apresoline initial workup reviewed by me which showed a sodium of 124 and the remainder of her hematologic labs were nonactionable including a normal troponin. My informal interpretation of the CT scan of the head and C-spine did not show any acute processes including bleed infarct or fracture. I discussed management of the patient with Dr. Abreu of cardiology who recommended admission for further evaluation and care. At that point I did spoke with the hospitalist service who agreed to admit the patient for further evaluation and care. Critical Care Critical Care Time Critical Care Time: No
--- NOTE | 2023-07-19 18:20 | PC.NURSE ---
Rounded on pt. Warm blanket provided. No other needs voiced and call light within reach.
--- NOTE | 2023-07-19 18:35 | CT_ITS ---
PROCEDURE INFORMATION: Exam: CT Head Without Contrast Exam date and time: 07/19/2023 7:53 PM Age: 78 years old Clinical indication: Syncope and collapse; Additional info: Syncope and collapse. Closed head injury TECHNIQUE: Imaging protocol: Computed tomography of the head without contrast. Radiation optimization: All CT scans at this facility use at least one of these dose optimization techniques: automated exposure control; mA and/or kV adjustment per patient size (includes targeted exams where dose is matched to clinical indication); or iterative reconstruction. COMPARISON: CT HEAD/BRAIN W CON 01/04/2020 8:24 AM FINDINGS: Brain: Central and cortical brain atrophy evident, appropriate for patient age. There is nonspecific periventricular low attenuation, likely microangiopathic disease. No acute intracranial hemorrhage. Cerebral ventricles: No ventriculomegaly. Paranasal sinuses: Visualized sinuses are unremarkable. No fluid levels. Mastoid air cells: Visualized mastoid air cells are well aerated. Bones/joints: Unremarkable. No acute fracture. Soft tissues: Unremarkable. IMPRESSION: No acute intracranial abnormality.
--- NOTE | 2023-07-19 18:41 | CT_ITS ---
PROCEDURE INFORMATION: Exam: CT Cervical Spine Without Contrast Exam date and time: 07/19/2023 7:55 PM Age: 78 years old Clinical indication: Injury or trauma; Fall TECHNIQUE: Imaging protocol: Computed tomography of the cervical spine without contrast. Radiation optimization: All CT scans at this facility use at least one of these dose optimization techniques: automated exposure control; mA and/or kV adjustment per patient size (includes targeted exams where dose is matched to clinical indication); or iterative reconstruction. COMPARISON: CT HEAD/BRAIN WO CON 07/19/2023 7:53 PM FINDINGS: Bones/joints: No acute fracture. Normal alignment. Partial osseous fusion at C4-C5. Moderate disc space narrowing at C5-C6 and C6-C7. No significant disc bulge or herniation. No severe spinal canal stenosis. Multilevel facet arthropathy with associated foraminal stenosis. Lungs: Lung apices are normal. Soft tissues: Unremarkable. IMPRESSION: No acute findings.
[2023-07-19] MEDS: ACETAMINOPHEN 1,000MG/100ML VIAL 1000 MG IV (18:45)
--- NOTE | 2023-07-19 18:53 | ECG_ITS ---
APPROVED REPORT Exam: Resting ECG HR:64 bpm ECG Measurements Heart Rate 64 AXES MT 191 P 36 QRSd 95 QRS -15 QT 413 T 32 QTc 422 Conclusion SINUS RHYTHM LOW QRS VOLTAGE IN PRECORDIAL LEADS [QRS DEFLECTION < 1.0 mV IN CHEST LEADS] VOLTAGE CRITERIA FOR LVH [MEETS CRITERIA IN ONE OF: R(aVL), S(V1), R(V5), R(V5/V6)+S(V1)] POSSIBLE ANTERIOR MYOCARDIAL INFARCTION , OF INDETERMINATE AGE [30 ms Q WAVE IN V3/V4, OR R < 0.2 mV IN V4] ABNORMAL ECG UNCONFIRMED REPORT Electronically signed by : Eduar Hills MD 07/20/2023 20:08:45
[2023-07-19 18:54] LABS: Magnesium 1.6 mg/dl (1.6-2.3)
[2023-07-19 19:13] LABS: Troponin I < 0.01 ng/ml (0.00-0.034)
[2023-07-19 19:16] LABS: INR 0.99 (0.9-1.1); Prothrombin Time 10.7 seconds (10.1-12.5)
[2023-07-19 19:25] LABS: Thyroid Stimulating Hormone 1.49 uIU/mL (0.465-4.68)
--- NOTE | 2023-07-19 20:37 | PC.NURSE ---
PA speaking with dr pierre
--- NOTE | 2023-07-19 20:52 | PC.NURSE ---
PA on phone with hospitalist
--- NOTE | 2023-07-19 20:55 | PC.NURSE ---
notified packing house laborer of admission
[2023-07-19] MEDS: HYDRALAZINE 20MG/ML VIAL 10 MG IV (21:04)
--- NOTE | 2023-07-19 21:44 | PC.NURSE ---
Report called to LESA Sanz
--- NOTE | 2023-07-19 22:10 | PC.NURSE ---
Patient arrived to floor via wheelchair from ED at 22:01.
[2023-07-19 22:32] LABS: Troponin I < 0.01 ng/ml (0.00-0.034)
--- NOTE | 2023-07-19 22:54 | XR_ITS ---
PROCEDURE INFORMATION: Exam: XR Chest Exam date and time: 07/19/2023 11:16 PM Age: 78 years old Clinical indication: Pain; Other: Syncope; Chest pressure TECHNIQUE: Imaging protocol: Radiologic exam of the chest. Views: 1 view. COMPARISON: CR XR CHEST PORTABLE 01/04/2020 4:10 PM FINDINGS: Lungs: There is a calcified granuloma at the left lung apex. Pleural spaces: Unremarkable. No pleural effusion. No pneumothorax. Heart/Mediastinum: Unremarkable. No cardiomegaly. Vasculature: Unremarkable. Bones/joints: Unremarkable. IMPRESSION: No acute findings.
--- NOTE | 2023-07-19 22:55 | P.HP_ITS ---
History of Present Illness *Admission Date: 07/19/23 *Reason for visit:: syncope *History of present illness: 78 year old female presented to [facility] ED for syncope. PMHX htn, hypothyroid, and anxiety. The pt reports that had a sudden syncopal event that occurred yesterday. Patient was sitting in a chair in her living room next to her and she got up to go to the kitchen she walked approximately 10 feet and had a sudden syncopal episode. She reported in the ER c/o her head hurting. In the ED her BP was 176/110. She received 10mg of hydralazine and BP decreased to 152/74. The pt's cardiac workup revealed negative troponins and EKG with t wave inversions. The ED PA spoke with cardiology who recommend admission for syncope workup. The ED consulted hospitalist for further medical management. [facility] Disclaimer: The information contained in this section may have been updated after the patient was seen, as this information can be updated by other users. Medical History Hypertension Hypothyroidism Social History Smoking Status: Never smoker alcohol intake: never current occupational status: other Travel in the last 8 weeks: None household members: other housing: other current occupation: retired caffeine: Yes Review of Systems *Cardiovascular Cardiovascular: Denies chest pain and Denies dyspnea *Respiratory Respiratory: Denies dyspnea *Gastrointestinal Gastrointestinal: Reports system reviewed and no additional complaints, except as documented *Genitourinary Genitourinary: Reports system reviewed and no additional complaints, except as documented *Musculoskeletal Musculoskeletal: Reports system reviewed and no additional complaints, except as documented *Neurologic Neurologic: Reports system reviewed and no additional complaints, except as documented Meds Home Medications and Allergies Home Medications Medication Instructions Recorded Confirmed Type levothyroxine 88 mcg tablet 88 mcg PO DAILY thyroid 01/02/20 07/20/23 History lorazepam 1 mg tablet 1 mg PO HS Anxiety 01/02/20 07/20/23 History carvedilol 6.25 mg tablet 6.25 mg PO BID #60 tabs 01/04/20 07/20/23 Rx lisinopril 40 mg tablet 40 mg PO DAILY 07/20/23 07/20/23 History rosuvastatin 10 mg tablet 10 mg PO DAILY 07/20/23 07/20/23 History sodium chloride 1,000 mg soluble 500 mg PO DAILY 30 days #15 tabs 07/20/23 Rx tablet New Prescriptions to Start Prescriptions: sodium chloride Yamil Mcmanus Allergies Allergy/AdvReac Type Severity Reaction Status Date / Time No Known Allergies Allergy Verified 07/19/23 22:07 Exam Data for Last 24 hours Vital signs and Labs for Last 24 Hours: Temp Pulse Resp BP Pulse Ox O2 Del Method 97.9 F 79 20 152/74 H 96 Room Air 07/19/23 22:26 07/19/23 22:26 07/19/23 22:26 07/19/23 22:26 07/19/23 22:26 07/19/23 22:28 Laboratory Results - last 24 hr 07/19/23 17:39: WBC 7.2, RBC 3.59 L, Hgb 12.2, Hct 33.3 L, MCV 93.0, MCH 34.0 H, MCHC 36.6 H, RDW 13.0, Plt Count 272, MPV 7.3 L, Neut % (Auto) 65.0, Lymph % (Auto) 27.2, Emm[place] % (Auto) 7.0, Eos % (Auto) 0.6, Baso % (Auto) 0.2, Neut # (Auto) 4.7, Lymph # (Auto) 2.0, Emm[place] # (Auto) 0.5, Eos # (Auto) 0.1, Baso # (Auto) 0.0, PT 10.7, INR 0.99, Sodium 124 L, Potassium 3.1 L, Chloride 89 L, Carbon Dioxide 26, Anion Gap 12.1, BUN 12, Creatinine 1.00, Estimated Creat Clear 49, Estimated GFR 53 L, Est GFR ( Amer) 65, Glucose 122 H, Calcium 8.8, Magnesium 1.6, Total Bilirubin 0.7, AST 30, ALT 22, Alkaline Phosphatase 86, Troponin I < 0.01, Total Protein 7.3, Albumin 4.1, Globulin 3.2, Albumin/Globulin Ratio 1.3, TSH 1.49 07/19/23 21:54: Troponin I < 0.01 I & O for Last 24 hours: Intake & Output 07/16/23 07/17/23 07/18/23 07/19/23 23:59 23:59 23:59 23:59 Weight 68.039 kg *Routine HEENT Exam Head: Present normocephalic Eye: Present EOMI ENT: Present mucous membranes moist *Routine Neck Exam Neck: Present full ROM *Routine Respiratory Exam Respiratory: Present normal respiratory effort and symmetric chest movement *Routine Cardiovascular Exam Cardiovascular: Present RRR *Routine Abdominal Exam Abdominal: Present soft and normoactive bowel sounds; Absent tenderness *Routine Rectal Exam Rectal:: deferred *Routine Genitalia Exam Genitalia:: deferred *Routine Extremities Exam Extremities: Present edema (+1 BLE ) *Routine Skin Exam Skin: Present intact *Routine Neurological Exam Neurological: Present alert and oriented X3 Assessment and Plan *Assessment and plan (1) Syncope: Status: Acute Category: Medical Code(s): R55 - Syncope and collapse (2) Hypokalemia: Status: Acute Category: Medical Code(s): E87.6 - Hypokalemia (3) Hypothyroidism: Status: Acute Category: Medical Code(s): E03.9 - Hypothyroidism, unspecified (4) Hypertension: Status: Acute Category: Medical Code(s): I10 - Essential (primary) hypertension (5) Anxiety: Status: Acute Category: Medical Code(s): F41.9 - Anxiety disorder, unspecified Plan 78 year old female presented to [facility] ED for syncope. PMHX htn, hypothyroid, and anxiety. The pt reports that had a sudden syncopal event that occurred yesterday. Patient was sitting in a chair [facility] and she got up to go to the kitchen she walked approximately 10 feet and had a sudden syncopal episode. She reported in the ER c/o her head hurting. In the ED her BP was 176/110. She received 10mg of hydralazine and BP decreased to 152/74. The pt's cardiac workup revealed negative troponins and EKG with t wave inversions. The ED PA spoke with cardiology who recommend admission for syncope workup. The ED consulted hospitalist for further medical management. I have placed a consult for cardiology. I have added a chest xray and bnp to the ED workup. Pt denies any chest pain. Will place on monitor technician and obtain orthostatics on pt. Plan as to follow: SYNCOPE HYPOKALEMIA -Syncopal episode yesterday. -Lab work reviewed and reveals negative troponins -EKG reveals sinus rhythm with t wave inversions -k 3.1- replace with 40 p.o -repeat BMP ordered for the morning -BNP and chest xray pending -Cardiology consult placed thank you for the help!! -monitor technician -restart home BP medications -obtain orthostatic blood pressure -head and c spine CT reviewed and reveals no injury or acute changes HYPOTHYROID HTN ANXIETY -awaiting home med rec -TSH 1.49 FULL CODE CARDIAC DIET DVT: SCD Rounded on patient after nurse practitioner. Personally examined and interviewed patient. Agree with exam findings and care plan as documented.
[2023-07-19 23:20] LABS: NT Pro Brain Natriuretic Pep. 133 pg/mL (0-450)
[2023-07-19] MEDS: LORazepam 0.5MG TABLET 1 MG PO (23:36)
[2023-07-19] MEDS: POTASSIUM CHLORIDE 10MEQ CAPSULE.ER 40 MEQ PO (23:36)
[2023-07-20] VITALS (8 sets, daily range): BP systolic 89–160; BP diastolic 45–86; PULSE 66–90; RESP 17–18; TEMP 36.5–36.8; O2SAT 93–98; BMI 27.6
[2023-07-20 01:55] LABS: Troponin I < 0.01 ng/ml (0.00-0.034)
--- NOTE | 2023-07-20 04:33 | PC.NURSE ---
pt denies pain, n/v, nsr on monitor. cardiology consult in am
--- NOTE | 2023-07-20 06:15 | PC.NURSE ---
srna went in to prep pt for a possible heart cath pending cardiology consult. pt is refusing to have groin prepped and wants to go home to be with spouse who is on hospice and she is the primary cargiver. requesting to go home and follow up with cardiology on an outpatient basis. Felecia Graves Aprn made aware.
[2023-07-20 07:18] LABS: Basophils % 0.1 % (0.1-2.0); Eosinophils # 0.1 K/mm3 (0.0-0.4); Eosinophils % 0.8 % (0.1-12.0); Hemoglobin 11.6 g/dL (12.2-16.2); Lymphocytes # 1.6 K/mm3 (0.7-4.5); Lymphocytes % 25.3 % (10-50); Mean Corpuscular HGB Conc 36.1 g/dL (31.8-35.4); Mean Corpuscular Hemoglobin 33.5 pg (27.0-31.2); Mean Corpuscular Volume 92.7 fl (81-99); Monocytes # 0.4 K/mm3 (0.1-1.0); Monocytes % 6.4 % (1.7-9.3); Neutrophils # 4.3 K/mm3 (1.8-7.8); Neutrophils % 67.3 % (37.0-80.0); Platelet Count 247 K/mm3 (142-424); Red Blood Count 3.45 M/mm3 (4.20-5.40); Red Cell Distribution Width 13.1 % (11.5-17.5); White Blood Count 6.4 K/mm3 (4.8-10.8)
[2023-07-20 07:21] LABS: Chloride 94 mmol/L (98-107); Potassium 3.4 mmoL/L (3.5-5.1); Sodium 125 mmol/L (136-145)
[2023-07-20 07:24] LABS: Anion Gap 5.4 mEq/L (5-15); Blood Urea Nitrogen 8 mg/dl (7-17); Calcium 8.8 mg/dl (8.4-10.2); Carbon Dioxide 29 mmol/L (22.0-30.0); Creatinine Clearance Estimated 49 mL/min (50-200); Estimated Glomerular Filt Rate 69 ml/min (>60); GFR (African American) 84 ML/MIN (>60); Glucose 100 mg/dl (74-100)
--- NOTE | 2023-07-20 07:31 | HMH.PHAINT1 ---
Pharmacy Intervention Comments: Verified home medications using external fill history; confirmed with patient at bedside that she is taking lisinopril 40mg, not 20mg. Updated Home Meds to reflect this change.
[2023-07-20] MEDS: SODIUM CHLORIDE 1,000MG TABLET 500 MG PO (09:19)
--- NOTE | 2023-07-20 10:32 | CA_ITS ---
APPROVED REPORT EXAM: Comprehensive 2D, Doppler, and color-flow Echocardiogram Medication Specialist: OBEY Landa, RVS Ht: 5 ft 2 in Wt: 150lbs BSA: 1.69 BP: 152/74 mmHg Indications: syncope, anxiety, htn 2D Dimensions Left Atrium 3.46 cm LA Volume 39.70 mL LA Volume Index 22.90 mL/m2 (M/F) 16-34 M-Mode Dimensions RVDd 3.26 cm (0.9-2.6) LA Diam 3.43 cm (1.9-4.0) LVDd 3.80 cm (3.5-5.7) LVDs 2.69 cm (3.5-5.7) IVSd 1.21 cm (0.6-1.1) PWd 0.87 cm (0.6-1.1) EF (Teich) 56.80% EPSs 0.65 cm FS 29.20% EDV (Teich) 62.00 mL ESV (Teich) 26.80 mL LV Diastology E Decel Time 263 (160-240 msec) E/A Ratio 0.81 MED A' 12.30 cm/s LAT A' 11.40 cm/s Aortic Valve [place] Index 1.17 cm2/m2 AoV Peak Carson. 126.0 (50-130 cm/s) AO Peak GR. 6.40 mmHg AO Mean GR. 3.20 (<5 mmHg) AO VTI 25.0 (18-25 cm) [place] (VTI) 2.03 (2.5-4.5 cm2) Mitral Valve MV A Velocity 73.0 (40-130 cm/s) E/A Ratio 0.81 Pulmonary Valve HI End VMAX 114.0 cm/s Left Ventricle The left ventricle is normal size. The left ventricular systolic function is normal. The left ventricular ejection fraction is within the normal range. There is normal left ventricular wall thickness. There is normal LV segmental wall motion. The left ventricular diastolic function is normal. LVEF is 55%. Right Ventricle Right ventricle is mildly dilated. The right ventricular systolic function is normal. Atria The left atrium size is normal. The right atrium size is normal. There is no Doppler evidence of interatrial shunt. Aortic Valve The aortic valve opens well. There is no aortic valvular stenosis. No aortic regurgitation is present. Mitral Valve The mitral valve is normal in structure. No evidence of mitral valve stenosis. No Mitral Regurgitation. Tricuspid Valve The tricuspid valve leaflets are thin and pliable. Trace tricuspid regurgitation. There is insufficient TR jet to estimate RVSP. Pulmonic Valve The pulmonary valve is normal in structure. Trace pulmonic regurgitation. Great Vessels The aortic root is normal in size. The ascending aorta is normal in size. IVC is normal in size and collapses >50% with inspiration. Pericardium There is no pericardial effusion. Other Information Study Quality: Fair Conclusion Normal biventricular systolic function. Mild RV dilation. No significant valvular stenosis or regurgitation. Electronically signed by : Krista Camacho MD 07/23/2023 01:46:32
--- NOTE | 2023-07-20 11:47 | P.DS_ITS ---
General Admission date:: 07/19/23 Discharge date: 07/20/23 HPI HPI HPI: 78 year old female presented to [facility] ED for syncope. PMHX htn, hypothyroid, and anxiety. The pt reports that had a sudden syncopal event that occurred yesterday. Patient was sitting in a chair in her living room next to her and she got up to go to the kitchen she walked approximately 10 feet and had a sudden syncopal episode. She reported in the ER c/o her head hurting. In the ED her BP was 176/110. She received 10mg of hydralazine and BP decreased to 152/74. The pt's cardiac workup revealed negative troponins and EKG with t wave inversions. The ED PA spoke with cardiology who recommend admission for syncope workup. The ED consulted hospitalist for further medical management. Hospital Course Hospital Course Hospital Course: 78 year old female presented to [facility] ED for syncope. PMHX htn, hypothyroid, and anxiety. The pt reports that had a sudden syncopal event that occurred yesterday. Patient was sitting in a chair in her living room next to her and she got up to go to the kitchen she walked approximately 10 feet and had a sudden syncopal episode. She reported in the ER c/o her head hurting. In the ED her BP was 176/110. She received 10mg of hydralazine and BP decreased to 152/74. The pt's cardiac workup revealed negative troponins and EKG with t wave inversions. The ED PA spoke with cardiology who recommend admission for syncope workup. The ED consulted hospitalist for further medical management. Patient was admitted with cardiology consult. No further episodes of syncope during admission. Given clinical improvement, stable for discharge home. Problems addressed as follows: SYNCOPE HYPOKALEMIA Hyponatremia -Patient had a syncopal episode on the day prior to admission. Found to have positive orthostatics initially on admission. Potassium was replaced and sodium was addressed. Saw minor improvement in electrolyte levels. Aside from syncope, patient had no focal neurologic deficits. No signs of confusion or altered mental status. EKG obtained showing sinus rhythm. Cardiology was consulted, echo with preliminary report of preserved ejection fraction. Repeat orthostatic blood pressures obtained after holding her HCTZ, improved by day of discharge. At this time, it is believed that her syncopal event is likely related to poor p.o. intake, dehydration, hypovolemia. Will hold HCTZ at discharge. Continue remainder of home regimen including carvedilol, lisinopril, Crestor. Initiated on sodium chloride supplement syncopal episode yesterday. Initiated on sodium chloride replacement with 500 mg tablet daily to address hyponatremia and volume status. Close follow-up with cardiology for further management. Stable to discharge home. Of note, head and C-spine CT revealed no injury or acute changes. Continue home regimen of 88 mcg levothyroxine for hypothyroid. TSH 1.49. Advised patient to work on self-care. States she does not eat if her does not eat. He is currently on hospice. She admits to self-neglect and not doing a better job staying hydrated and getting good nutrition. Patient to work on this. Spent 30 minutes in discharge counseling, documentation, chart review, and direct care with patient. Exam Data for Last 24 hours Vital signs and Labs for Last 24 Hours: Temp Pulse Resp BP Pulse Ox O2 Del Method 97.7 F 80 17 106/62 L 98 Room Air 07/20/23 07:45 07/20/23 08:00 07/20/23 07:45 07/20/23 08:41 07/20/23 08:00 07/20/23 10:16 Laboratory Results - last 24 hr 07/19/23 17:39: WBC 7.2, RBC 3.59 L, Hgb 12.2, Hct 33.3 L, MCV 93.0, MCH 34.0 H, MCHC 36.6 H, RDW 13.0, Plt Count 272, MPV 7.3 L, Neut % (Auto) 65.0, Lymph % (Auto) 27.2, [place] % (Auto) 7.0, Eos % (Auto) 0.6, Baso % (Auto) 0.2, Neut # (Auto) 4.7, Lymph # (Auto) 2.0, [place] # (Auto) 0.5, Eos # (Auto) 0.1, Baso # (Auto) 0.0, PT 10.7, INR 0.99, Sodium 124 L, Potassium 3.1 L, Chloride 89 L, Carbon Dioxide 26, Anion Gap 12.1, BUN 12, Creatinine 1.00, Estimated Creat Clear 49, Estimated GFR 53 L, Est GFR ( Amer) 65, Glucose 122 H, Calcium 8.8, Magnesium 1.6, Total Bilirubin 0.7, AST 30, ALT 22, Alkaline Phosphatase 86, Troponin I < 0.01, Total Protein 7.3, Albumin 4.1, Globulin 3.2, Albumin/Globulin Ratio 1.3, TSH 1.49 07/19/23 21:54: Troponin I < 0.01, NT-Pro-B Natriuret Pep 133 07/20/23 01:30: Troponin I < 0.01 07/20/23 06:56: WBC 6.4, RBC 3.45 L, Hgb 11.6 L, Hct 32.0 L, MCV 92.7, MCH 33.5 H, MCHC 36.1 H, RDW 13.1, Plt Count 247, MPV 7.0 L, Neut % (Auto) 67.3, Lymph % (Auto) 25.3, [place] % (Auto) 6.4, Eos % (Auto) 0.8, Baso % (Auto) 0.1, Neut # (Auto) 4.3, Lymph # (Auto) 1.6, [place] # (Auto) 0.4, Eos # (Auto) 0.1, Baso # (Auto) 0.0, Sodium 125 L, Potassium 3.4 L, Chloride 94 L, Carbon Dioxide 29, Anion Gap 5.4, BUN 8 D, Creatinine 0.80, Estimated Creat Clear 49, Estimated GFR 69, Est GFR ( Amer) 84 D, Glucose 100, Calcium 8.8 I & O for Last 24 hours: Intake & Output 07/17/23 07/18/23 07/19/23 07/20/23 23:59 23:59 23:59 23:59 Intake Total 180 / 180 Output Total 0 / 0 0 / 0 Balance 0 / 0 180 / 180 Weight 68.039 kg 68.067 kg Results Data Completed and Pending Labs on day of discharge: Labs from last 24 hours 07/20/23 07/20/23 07/19/23 06:56 01:30 21:54 WBC 6.4 RBC 3.45 L Hgb 11.6 L Hct 32.0 L MCV 92.7 MCH 33.5 H MCHC 36.1 H RDW 13.1 Plt Count 247 MPV 7.0 L Neut % (Auto) 67.3 Lymph % (Auto) 25.3 [place] % (Auto) 6.4 Eos % (Auto) 0.8 Baso % (Auto) 0.1 Neut # (Auto) 4.3 Lymph # (Auto) 1.6 [place] # (Auto) 0.4 Eos # (Auto) 0.1 Baso # (Auto) 0.0 PT INR Sodium 125 L Potassium 3.4 L Chloride 94 L Carbon Dioxide 29 Anion Gap 5.4 BUN 8 D Creatinine 0.80 Estimated Creat Clear 49 Estimated GFR 69 Est GFR ( Amer) 84 D Glucose 100 Calcium 8.8 Magnesium Total Bilirubin AST ALT Alkaline Phosphatase Troponin I < 0.01 < 0.01 NT-Pro-B Natriuret Pep 133 Total Protein Albumin Globulin Albumin/Globulin Ratio TSH 07/19/23 17:39 WBC 7.2 RBC 3.59 L Hgb 12.2 Hct 33.3 L MCV 93.0 MCH 34.0 H MCHC 36.6 H RDW 13.0 Plt Count 272 MPV 7.3 L Neut % (Auto) 65.0 Lymph % (Auto) 27.2 [place] % (Auto) 7.0 Eos % (Auto) 0.6 Baso % (Auto) 0.2 Neut # (Auto) 4.7 Lymph # (Auto) 2.0 [place] # (Auto) 0.5 Eos # (Auto) 0.1 Baso # (Auto) 0.0 PT 10.7 INR 0.99 Sodium 124 L Potassium 3.1 L Chloride 89 L Carbon Dioxide 26 Anion Gap 12.1 BUN 12 Creatinine 1.00 Estimated Creat Clear 49 Estimated GFR 53 L Est GFR ( Amer) 65 Glucose 122 H Calcium 8.8 Magnesium 1.6 Total Bilirubin 0.7 AST 30 ALT 22 Alkaline Phosphatase 86 Troponin I < 0.01 NT-Pro-B Natriuret Pep Total Protein 7.3 Albumin 4.1 Globulin 3.2 Albumin/Globulin Ratio 1.3 TSH 1.49 DS: Diagnosis Discharge Diagnosis (1) Syncope: Status: Acute Code(s): R55 - Syncope and collapse (2) Hypokalemia: Status: Acute Code(s): E87.6 - Hypokalemia (3) Hypothyroidism: Status: Acute Code(s): E03.9 - Hypothyroidism, unspecified (4) Hypertension: Status: Acute Code(s): I10 - Essential (primary) hypertension (5) Anxiety: Status: Acute Code(s): F41.9 - Anxiety disorder, unspecified Meds Home Medications and Allergies Home Medications Medication Instructions Recorded Confirmed Type levothyroxine 88 mcg tablet 88 mcg PO DAILY thyroid 01/02/20 07/20/23 History lorazepam 1 mg tablet 1 mg PO HS Anxiety 01/02/20 07/20/23 History carvedilol 6.25 mg tablet 6.25 mg PO BID #60 tabs 01/04/20 07/20/23 Rx lisinopril 40 mg tablet 40 mg PO DAILY 07/20/23 07/20/23 History rosuvastatin 10 mg tablet 10 mg PO DAILY 07/20/23 07/20/23 History sodium chloride 1,000 mg soluble 500 mg PO DAILY 30 days #15 tabs 07/20/23 Rx tablet New Prescriptions to Start Prescriptions: sodium Yamil Langley Allergies Allergy/AdvReac Type Severity Reaction Status Date / Time No Known Allergies Allergy Verified 07/19/23 22:07 Discharge Plan Disposition Patient Disposition: Home, Self-Care Condition: Fair Follow up Plan Follow up with: Edvin Camacho MD [Staff Physician] - 07/27/23 2:15 pm Prescriptions/Medication Reconciliation: New sodium chloride 1,000 mg Tablet,Soluble 500 mg PO DAILY 30 Days Qty: 15 0RF Continued levothyroxine 88 MCG tablet 88 mcg PO DAILY lorazepam 1 mg tablet 1 mg PO HS Patient Comments: TK 1 T PO BID NEEDED FOR ANXIETY carvedilol 6.25 MG tablet 6.25 mg PO BID Qty: 60 0RF rosuvastatin 10 mg tablet 10 mg PO DAILY Patient Comments: TAKE 1 TABLET BY MOUTH EVERY DAY lisinopril 40 mg tablet 40 mg PO DAILY Patient Comments: TAKE 1 TABLET BY MOUTH EVERY DAY Discontinued hydrochlorothiazide 25 MG tablet 25 mg PO DAILY Problem Reconciliation Problems Reviewed?: Yes Patient Discharge Instructions ACTIVITY: Continue current activity DIET: continue same diet Patient Instructions: DI for Syncope in Adults (Fainting) Providers Primary Care Provider: Nicolas Banegas Admnba Provider: Florencio Voss Attending Provider: Florencio Voss
--- NOTE | 2023-07-20 13:38 | P.CONCA_ITS ---
History of Present Illness History of Present Illness Consult date: 07/20/23 Requesting physician: Lukas Graves Chief complaint: syncope Additional Medical History:: History of present illness: 78-year-old white female without known cardiovascular disease who follows closely with her family physician for high blood pressure and anxiety. Patient states 2 days prior to arrival she stood up quickly from the living room to walk to another room, after ambulating approximately 10 feet she had syncope and loss of consciousness. She was transported to the ER where she was found to have sodium 124, potassium 3.4. Her orthostatic vitals are positive. Med list shows she takes hydrochlorothiazide at home. She reports she has been taking care of her chronically ill who has renal failure and she has been neglecting proper nutrition and hydration at home. She was admitted overnight for observation. This morning she reports she is asymptomatic. 2D echo was done this morning, preliminary result shows normal EF, no wall motion changes or significant valve disease. [facility] Disclaimer: The information contained in this section may have been updated after the patient was seen, as this information can be updated by other users. Medical History Hypertension Hypothyroidism Social History Smoking Status: Never smoker alcohol intake: never current occupational status: other Travel in the last 8 weeks: None household members: other housing: other current occupation: retired caffeine: Yes Review of Systems Constitutional Constitutional: Denies fatigue and Denies weakness Eyes Eyes: Denies loss of vision ENT Ears, Nose, Mouth, and Throat: Denies hearing loss *Cardiovascular Cardiovascular: Denies chest pain and Denies dyspnea *Respiratory Respiratory: Denies cough and Denies dyspnea *Gastrointestinal Gastrointestinal: Denies change in stool character, Denies nausea and Denies vomiting *Musculoskeletal Musculoskeletal: Denies muscle weakness Integumentary/Breasts Skin/Breast: Denies changing lesions *Neurologic Neurologic: Reports system reviewed and no additional complaints, except as documented, Denies loss of vision and Denies weakness Comments: Syncope Endocrine Endocrine: Denies fatigue Exam Data for Last 24 hours Vital signs and Labs for Last 24 Hours: Temp Pulse Resp BP Pulse Ox O2 Del Method 97.7 F 80 17 128/75 98 Room Air 07/20/23 07:45 07/20/23 08:00 07/20/23 07:45 07/20/23 13:00 07/20/23 08:00 07/20/23 12:25 Laboratory Results - last 24 hr 07/19/23 17:39: WBC 7.2, RBC 3.59 L, Hgb 12.2, Hct 33.3 L, MCV 93.0, MCH 34.0 H, MCHC 36.6 H, RDW 13.0, Plt Count 272, MPV 7.3 L, Neut % (Auto) 65.0, Lymph % (Auto) 27.2, [place] % (Auto) 7.0, Eos % (Auto) 0.6, Baso % (Auto) 0.2, Neut # (Auto) 4.7, Lymph # (Auto) 2.0, [place] # (Auto) 0.5, Eos # (Auto) 0.1, Baso # (Auto) 0.0, PT 10.7, INR 0.99, Sodium 124 L, Potassium 3.1 L, Chloride 89 L, Carbon Dioxide 26, Anion Gap 12.1, BUN 12, Creatinine 1.00, Estimated Creat Clear 49, Estimated GFR 53 L, Est GFR ( Amer) 65, Glucose 122 H, Calcium 8.8, Magnesium 1.6, Total Bilirubin 0.7, AST 30, ALT 22, Alkaline Phosphatase 86, Troponin I < 0.01, Total Protein 7.3, Albumin 4.1, Globulin 3.2, Albumin/Globulin Ratio 1.3, TSH 1.49 07/19/23 21:54: Troponin I < 0.01, NT-Pro-B Natriuret Pep 133 07/20/23 01:30: Troponin I < 0.01 07/20/23 06:56: WBC 6.4, RBC 3.45 L, Hgb 11.6 L, Hct 32.0 L, MCV 92.7, MCH 33.5 H, MCHC 36.1 H, RDW 13.1, Plt Count 247, MPV 7.0 L, Neut % (Auto) 67.3, Lymph % (Auto) 25.3, [place] % (Auto) 6.4, Eos % (Auto) 0.8, Baso % (Auto) 0.1, Neut # (Auto) 4.3, Lymph # (Auto) 1.6, [place] # (Auto) 0.4, Eos # (Auto) 0.1, Baso # (Auto) 0.0, Sodium 125 L, Potassium 3.4 L, Chloride 94 L, Carbon Dioxide 29, Anion Gap 5.4, BUN 8 D, Creatinine 0.80, Estimated Creat Clear 49, Estimated GFR 69, Est GFR ( Amer) 84 D, Glucose 100, Calcium 8.8 I & O for Last 24 hours: Intake & Output 07/17/23 07/18/23 07/19/23 07/20/23 23:59 23:59 23:59 23:59 Intake Total 450 / 450 Output Total 0 / 0 0 / 0 Balance 0 / 0 450 / 450 Weight 150 lb 150 lb 1 oz Constitutional Constitutional: no acute distress and cooperative *Routine HEENT Exam Eye: Present PERRL *Routine Respiratory Exam Respiratory: Present CTA bilaterally; Absent accessory muscle use, wheezes or crackles *Routine Cardiovascular Exam Cardiovascular: Present RRR, Normal S1 and Normal S2; Absent murmur, gallop or rubs *Routine Abdominal Exam Abdominal: Present soft; Absent tenderness *Routine Extremities Exam Extremities: Present pulses intact; Absent cyanosis or edema *Routine Skin Exam Skin: Present intact; Absent erythema or wounds *Routine Neurological Exam Neurological: Present alert and oriented X3 Routine Psychiatric Exam Psychiatric: Present cooperative Meds Home Medications and Allergies Home Medications Medication Instructions Recorded Confirmed Type levothyroxine 88 mcg tablet 88 mcg PO DAILY thyroid 01/02/20 07/20/23 History lorazepam 1 mg tablet 1 mg PO HS Anxiety 01/02/20 07/20/23 History carvedilol 6.25 mg tablet 6.25 mg PO BID #60 tabs 01/04/20 07/20/23 Rx hydrochlorothiazide 25 mg tablet 25 mg PO DAILY High Blood Pressure 07/19/23 07/20/23 History lisinopril 40 mg tablet 40 mg PO DAILY 07/20/23 07/20/23 History rosuvastatin 10 mg tablet 10 mg PO DAILY 07/20/23 07/20/23 History New Prescriptions to Start Prescriptions: Allergies Allergy/AdvReac Type Severity Reaction Status Date / Time No Known Allergies Allergy Verified 07/19/23 22:07 Assessment and Plan *Assessment and plan (1) Syncope due to orthostatic hypotension: Status: Acute Category: Medical Code(s): I95.1 - Orthostatic hypotension (2) Hyponatremia: Status: Acute Category: Medical Code(s): E87.1 - Hypo-osmolality and hyponatremia (3) Hypokalemia: Status: Acute Category: Medical Code(s): E87.6 - Hypokalemia (4) Hypertension: Status: Acute Category: Medical Code(s): I10 - Essential (primary) hypertension Plan Syncope due to orthostasis -DC hydrochlorothiazide, start fluid resuscitation, lyte correction -Advised on good p.o. intake and hydration at home -Keep twice daily blood pressure log and bring to office follow-up Severe hyponatremia, 124 -DC hydrochlorothiazide, hospitalist is correcting Hypokalemia, 3.4 -DC hydrochlorothiazide, hospitalist is correcting Hypertension -Well-controlled here, continue home meds minus hydrochlorothiazide Patient is CV stable for discharge, she needs outpatient follow-up with us in 2 weeks. Please advise if we can be of further assistance this admission.
--- NOTE | 2023-07-21 11:06 | CARE MANAGER ---
Called and spoke with patient regarding recent discharge. Patient stated that she is doing well, has made the changes to medication that was ordered at discharge, and is aware of scheduled f/u appt. No concerns voiced at time of call.
== END 2023-07-20 16:21 | disposition home or self-care (01) ==
LOC: ER 17:49 → 2ND 21:02
PROVIDERS: Nurse Practitioner Critical Care Medicine; Physician Assistant; Admitting Provider Internal Medicine; Emergency Provider Emergency Medicine; PCP Family Medicine; Visit Provider Internal Medicine
DX: R55 Syncope and collapse (principal); I95.1 Orthostatic hypotension; E87.1 Hypo-osmolality and hyponatremia; E87.6 Hypokalemia; I10 Essential (primary) hypertension; E03.9 Hypothyroidism, unspecified; F41.9 Anxiety disorder, unspecified
CPT/HCPCS: 36415; 70450; 71045; 72125; 80048; 80053; 83735; 83880; 84443; 84484; 85025; 85610; 93005; 93306; 99285; G0378; J0131

== ENCOUNTER 2023-07-27 14:42 | Outpatient (CLI) | payer MEDICARE, SELFPAY ==
[2023-07-27 15:14] LABS: Basophils % 0.2 % (0.1-2.0); Eosinophils # 0.1 K/mm3 (0.0-0.4); Eosinophils % 1.4 % (0.1-12.0); Hematocrit 34.8 % (37.0-47.0); Hemoglobin 11.7 g/dL (12.2-16.2); Lymphocytes # 1.6 K/mm3 (0.7-4.5); Lymphocytes % 24.5 % (10-50); Mean Corpuscular HGB Conc 33.8 g/dL (31.8-35.4); Mean Corpuscular Hemoglobin 34.1 pg (27.0-31.2); Mean Corpuscular Volume 101.1 fl (81-99); Mean Platelet Volume 7.3 fl (7.4-10.4); Monocytes # 0.4 K/mm3 (0.1-1.0); Monocytes % 6.7 % (1.7-9.3); Neutrophils # 4.3 K/mm3 (1.8-7.8); Neutrophils % 67.3 % (37.0-80.0); Platelet Count 288 K/mm3 (142-424); Red Blood Count 3.44 M/mm3 (4.20-5.40); Red Cell Distribution Width 13.2 % (11.5-17.5); White Blood Count 6.3 K/mm3 (4.8-10.8)
[2023-07-27 15:43] LABS: Anion Gap 7.9 mEq/L (5-15); Blood Urea Nitrogen 6 mg/dl (7-17); Calcium 8.8 mg/dl (8.4-10.2); Carbon Dioxide 25 mmol/L (22.0-30.0); Chloride 102 mmol/L (98-107); Estimated Glomerular Filt Rate 69 ml/min (>60); GFR (African American) 84 ML/MIN (>60); Glucose 98 mg/dl (74-100); Magnesium 1.8 mg/dl (1.6-2.3); Potassium 3.9 mmoL/L (3.5-5.1); Sodium 131 mmol/L (136-145)
== END 2023-07-27 23:59 ==
PROVIDERS: PCP Family Medicine; Visit Provider Internal Medicine
DX: E87.1 Hypo-osmolality and hyponatremia (principal); I10 Essential (primary) hypertension; I95.1 Orthostatic hypotension
CPT/HCPCS: 36415; 80048; 83735; 85025

== ENCOUNTER 2023-08-09 15:26 | Outpatient (CLI) | payer MEDICARE, SELFPAY ==
[2023-08-09 15:45] LABS: Basophils % 0.5 % (0.1-2.0); Eosinophils # 0.1 K/mm3 (0.0-0.4); Eosinophils % 1.5 % (0.1-12.0); Hematocrit 36.6 % (37.0-47.0); Hemoglobin 12.4 g/dL (12.2-16.2); Lymphocytes # 1.7 K/mm3 (0.7-4.5); Lymphocytes % 20.2 % (10-50); Mean Corpuscular HGB Conc 33.9 g/dL (31.8-35.4); Mean Corpuscular Hemoglobin 34.4 pg (27.0-31.2); Mean Corpuscular Volume 101.4 fl (81-99); Mean Platelet Volume 7.3 fl (7.4-10.4); Monocytes # 0.3 K/mm3 (0.1-1.0); Monocytes % 3.8 % (1.7-9.3); Neutrophils # 6.1 K/mm3 (1.8-7.8); Platelet Count 286 K/mm3 (142-424); Red Blood Count 3.61 M/mm3 (4.20-5.40); Red Cell Distribution Width 13.8 % (11.5-17.5); White Blood Count 8.2 K/mm3 (4.8-10.8)
[2023-08-09 16:59] LABS: Alanine Aminotransferase 16 U/L (12-78); Albumin Level 4.2 g/dl (3.5-5.0); Alkaline Phosphatase 85 U/L (38-126); Aspartate Amino Transferase 27 U/L (14-36); Bilirubin,Direct 0.2 mg/dl (0.0-0.4); Bilirubin,Indirect 0.7 mg/dL (0.0-0.9); Bilirubin,Total 0.9 mg/dl (0.2-1.3); Bilirubin,Unconjugated 0.7 mg/dL (0.0-1.1); Blood Urea Nitrogen 10 mg/dl (7-17); Calcium 9.2 mg/dl (8.4-10.2); Carbon Dioxide 24 mmol/L (22.0-30.0); Chloride 100 mmol/L (98-107); Cholesterol 156 mg/dl (140-200); Estimated Glomerular Filt Rate 60 ml/min (>60); GFR (African American) 73 ML/MIN (>60); Glucose 104 mg/dl (74-100); HDL Cholesterol 52 mg/dl (40-60); Magnesium 1.8 mg/dl (1.6-2.3); Sodium 131 mmol/L (136-145); Total Protein,Serum 7.4 g/dl (6.3-8.2); Triglycerides 133 mg/dl (30-150); VLDL Cholesterol 27 mg/dL (0-40)
[2023-08-09 17:10] LABS: Direct LDL Cholesterol 70.12 mg/dL (100-129)
[2023-08-09 17:15] LABS: Free T4 (Free Thyroxine) 1.85 ng/dl (0.78-2.19)
[2023-08-09 17:29] LABS: Thyroid Stimulating Hormone 1.96 uIU/mL (0.465-4.68)
== END 2023-08-09 23:59 ==
LOC: LAB 15:27
PROVIDERS: PCP Family Medicine; Visit Provider Internal Medicine
DX: E03.9 Hypothyroidism, unspecified (principal); E87.1 Hypo-osmolality and hyponatremia; I10 Essential (primary) hypertension
CPT/HCPCS: 36415; 80048; 80061; 80076; 83735; 84439; 84443; 85025